=== PATIENT | male | born 1995 | race Two or more races ===

== ENCOUNTER 2023-07-10 10:47 | Emergency (ER) | payer BC, OTHER ==
[~2023-07-10] VITALS: Ht 170.2 cm; Wt 89.4 kg
[2023-07-10] MEDS: FAMOTIDINE (20 MG) 20 MG TABLET PO ONE (12:30)
[2023-07-10] MEDS: DICYCLOMINE HCL 10 MG CAPSULE PO ONE (12:30)
[2023-07-10] MEDS: LIDOCAINE VISCOUS 2% UD 15 ML UDC MM ONE (12:30)
[2023-07-10] MEDS: MAG HYDROX/AL HYDROX/SIMETH 30 ML UDC PO ONE (12:30)
[2023-07-10] MEDS ORDERED: MAG HYDROX/AL HYDROX/SIMETH 30 ML UDC ONE (12:44)
[2023-07-10] MEDS ORDERED: LIDOCAINE VISCOUS 2% UD 15 ML UDC ONE (12:44)
[2023-07-10] MEDS ORDERED: FAMOTIDINE (20 MG) 20 MG TABLET ONE (12:45)
[2023-07-10] MEDS ORDERED: DICYCLOMINE HCL 10 MG CAPSULE PO ONE (12:45)
[2023-07-10] MEDS ORDERED: ONDA4TAB11 PO (12:48)
[2023-07-10] MEDS ORDERED: FAMO20TA8 PO (12:48)
[2023-07-10] MEDS ORDERED: CALC-818 PO (12:48)
[2023-07-10 17:53] VITALS: BP 131/77; TEMP 97.9; O2SAT 97
== END 2023-07-10 13:30 | disposition home or self-care (01) ==
LOC: ER 10:47
DX: A08.4 Viral intestinal infection, unspecified (principal); Z60.2 Problems related to living alone